=== PATIENT | male | born 1965 | race Caucasian/White ===

== ENCOUNTER 2022-01-11 11:07 | Outpatient (CLI) | payer OTHER, SELFPAY ==
--- OUTSIDE RECORDS SUMMARY | 2022-01-11 11:21 | XMS_ITS | Clinical Summary ---
:1965 Author Organization [employer] [facility] [facility] [place] [address] Care Team Providers Name Role Phone Jatinder Coffman MD Primary Care Provider Allergies Active Allergy Reactions Severity Noted Date Comments Clarithromycin Rash 06/20/2006 Cephalexin Rash 06/19/2006 Hydrocodone-Acetaminophen Nausea And Vomiting 04/16/19 20 Medications Medication Sig Dispensed Refills Start Date End Date Status methotrexate TAKE 6 TABLETS BY 3 01/13/2019 Active (RHEUMATREX) 2.5 mg MOUTH EVERY 7 DAYS tablet folic acid 1 mg Take 1 mg by mouth 3 11/28/2018 Active tablet once daily. terbinafine HCl TAKE 1 TABLET BY 5 01/17/2019 Active (LAMISIL) 250 mg MOUTH TWICE DAILY tablet FOR 1 WEEK PER MONTH FOR 6 MONTHS clobetasol cream APPLY CREAM 2 10/08/2018 Active 0.05% (TEMOVATE) TOPICALLY TO 0.05 % cream AFFECTED AREA TWICE DAILY SPARINGLY multivitamin (MVI) Take 1 tablet by 0 Active tablet mouth once daily. ibuprofen (ADVIL; Take 800 mg by mouth 0 Active MOTRIN) 200 mg cap once daily. oxyCODONE-acetaminop Take 1 tablet by 15 tablet 0 04/29/2019 Active hen, 5-325 mg, mouth every 6 hours (PERCOCET) 5-325 mg if needed for Pain per Max acetaminophen tabletIndications: dose: 4000mg in 24 Post-op pain hrs. Active Problems Problem Noted Date Umbilical hernia without obstruction and without gangr justin 11/23/2017 Other psoriasis 06/20/2006 Resolved Problems Problem Noted Date Resolved Date Impacted cerumen 06/19/2006 06/20/2006 Other acute infections of external ear 06/19/2006 0 06/20/2006 Immunizations Name Administration Dates Next Due Tdap 11/19/2015 Family History Medical History Relation Name Comments Hypertension Father Relation Name Status Comments Father Social History Tobacco Use Types Packs/Day Years Used Date Current Every Day Smoker Cigarettes 1 28 Smokeless Tobacco: Never Used Tobacco Cessation: Ready to Quit: No; Co unseling Given: Yes Alcohol Use Standard Drinks/Week Comments Yes 0 (1 standard drink = 0.6 oz pure alcoho l) Social Sex Assigned at Date Recorded Not on file Obstetrics History Last Filed Vital Signs Vital Sign Reading Time Taken Comments Blood Pressure 134/74 04/29/2019 10:24 AM RULING MACHINE OPERATOR Pulse 80 04/29/2019 10:24 AM RULING MACHINE OPERATOR Temperature 36.1 ??C (97 ??F) 04/16/2019 2:50 PM RULING MACHINE OPERATOR Respiratory Rate 16 04/16/2019 5:45 PM RULING MACHINE OPERATOR Oxygen Saturation 98% 04/16/2019 5:45 PM RULING MACHINE OPERATOR Inhaled Oxygen Concentration - - Weight 104 kg (229 lb 4.8 oz) 04/29/2019 10:24 AM RULING MACHINE OPERATOR Height 175.3 cm (5' 9) 04/16/2019 11:17 AM RULING MACHINE OPERATOR Body Mass Index 33.86 04/16/2019 11:17 AM RULING MACHINE OPERATOR Plan of Treatment Health Maintenance Due Date Last Done Comments COVID-19 vaccine series (#1) 03/30/1966 Hepatitis C screening for age 0709/28/1983 18-79 Colonoscopy through age 75 2010 Zoster (shingles) series for age 0709/28/2015 50+ (1 of 2) Depression screening for age 12+ 11/23/2018 11/23/2017, , 11/08/2017 BMI (ht and wt on same day) for 04/01/2020 04/01/2019, 11/19, age 18+ 11/23/2017, Additional history exists Influenza for age 50-64 11/18/2021 Lipids for age 45-75 11/08/2022 11/08/2017 Tetanus booster 11/18/2025 11/19/2015 Tdap Completed 11/19/2015 Medical Devices Implanted Type Area Hand Candy Cutter Device Shelf Model / Identifier Expiration Date Ser ial / Lot Mesh Ventral 3.1x4.7in Ventrio - [id number] N/A: Abdomen Mk ol Inc 05/17/2019 [id number] / Implanted: Qty: 1 on 04/16/2019 by Olivre Patel MD at [facility] / [id number] Results Not on filefrom Last 3 Months Insurance Payer Benefit Plan / Subscriber ID Effective Dates Phone Addre ss Type Group WC WORKERS COMP WC SENTRY [id number] 2017-Present [address] [place] [address] [employer] [id number] 2017-Present [address] [place] [address] (Home) [phone] Polina MYLES (Work) [id number] [employer] Self 1965 [address] (Home) [place] [id number] Advance Directives Latest Code Status on File Code Status Date Activated Date Inactivated Comments Full Code 04/16/2019 10:56 AM 04/16/2019 8:12 PM Code Status Discussion: Not Discussed Full Code 11/28/2017 8:27 AM 11/28/2017 3:43 PM Code Status Discussion: Not Discussed Care Teams Desizing Machine Back Tender Relationship Specialty Start Date End Date Jatinder Coffman MD PCP - General Family Practice 04/12/191999 [place] [address]
[2022-01-11 13:58] LABS: Basophils Percent Auto 0.5 % (0.0-3.0); Eosinophils Percent Auto 2.9 % (0.0-7.0); Hematocrit 47.6 % (37.0-53.0); Hemoglobin* 15.1 gm/dL (13.5-17.5); Immature Granulocytes Abs Auto 0.03 K/uL (0.00-0.30); Lymphocytes Percent Auto 24.2 % (20-44); Mean Corpuscular HGB Conc 32 gm/dL (32-36); Mean Corpuscular Hemoglobin 29 pg (26-34); Mean Corpuscular Volume 92 fL (80-100); Monocytes Percent Auto 11.4 % (0.0-11.0); Neutrophils Percent Auto 60.7 % (42.0-72.0); Platelet Count* 398 K/uL (140-440); RDW Coefficient of Variation % 13.5 % (11.5-15.5); Red Blood Count 5.16 m/uL (4.30-5.90); White Blood Count* 11.79 K/uL (4.50-11.00)
[2022-01-11 14:05] LABS: Slide Review Reflex No
[2022-01-11 16:57] LABS: Chloride* 100 mmol/L (96-114)
[2022-01-11 16:59] LABS: Potassium* 4.6 mmol/L (3.6-5.1); Sodium* 136 mmol/L (135-149)
[2022-01-11 17:00] LABS: Cholesterol* 182 mg/dL (90-199); Creatinine* 0.9 mg/dL (0.5-1.5); Estimated Glomerular Filt Rate 100 ml/min
[2022-01-11 17:01] LABS: Alanine Aminotransferase* 23 U/L (4-50); Blood Urea Nitrogen* 14 mg/dL (7-30); Calcium* 8.4 mg/dL (8.4-10.6); Carbon Dioxide* 31 mmol/L (20-32); Glucose* 82 mg/dL (60-115); HDL Cholesterol* 47 mg/dL (>=40); LDL Cholesterol Calculated 90 mg/dL (<100); Triglycerides* 227 mg/dL (40-149)
== END 2022-01-11 11:08 | disposition home or self-care (01) ==
PROVIDERS: PCP Family Medicine; Visit Provider Family Medicine
DX: E03.9 Hypothyroidism, unspecified (principal); Z13.6 Encounter for screening for cardiovascular disorders; Z12.5 Encounter for screening for malignant neoplasm of prostate
CPT/HCPCS: 80048; 80061; 84153; 84443; 84460; 85025

== ENCOUNTER 2022-02-01 19:17 | Outpatient (CLI) | payer OTHER, SELFPAY ==
--- OUTSIDE RECORDS SUMMARY | 2022-02-01 19:34 | XMS_ITS | Clinical Summary ---
:1965 Author Organization [employer] [facility] [employer] [facility] [place] [address] Care Team Providers Name Role Phone Jatinder Coffman MD Primary Care Provider [phone] Allergies Active Allergy Reactions Severity Noted Date [...] Comments Blood Pressure 134/74 04/29/2019 10:24 AM CONSULTING SERVICES MANAGER Pulse 80 04/29/2019 10:24 AM CONSULTING SERVICES MANAGER Temperature 36.1 ??C (97 ??F) 04/16/2019 2:50 PM CONSULTING SERVICES MANAGER Respiratory Rate 16 04/16/2019 5:45 PM CONSULTING SERVICES MANAGER Oxygen Saturation 98% 04/16/2019 5:45 PM CONSULTING SERVICES MANAGER Inhaled Oxygen Concentration - - Weight 104 kg (229 lb 4.8 oz) 04/29/2019 10:24 AM CONSULTING SERVICES MANAGER Height 175.3 cm (5' 9) 04/16/2019 11:17 AM CONSULTING SERVICES MANAGER Body Mass Index 33.86 04/16/2019 11:17 AM CONSULTING SERVICES MANAGER Plan of Treatment Health Maintenance Due Date [...] Completed 11/19/2015 Medical Devices Implanted Type Area Pipe Smoker Machine Operator Device Shelf Model / Identifier Expiration Date Ser ial / Lot Mesh Ventral 3.1x4.7in Ventrio - [id number] N/A: Abdomen Mk ol Inc 05/17/2019 [id number] / Implanted: Qty: 1 on 04/16/2019 by Oliver Patel MD at [facility] / [id number] Results Not on filefrom Last 3 Months Insurance Payer Benefit Plan / Subscriber ID Effective Dates Phone Addre ss Type Group WC WORKERS COMP WC SENTRY [id number] 2017-Present [address] [place] [address] [employer] [id number] 2017-Present [address] [place] [address] (Home) [phone] Polina MYLES (Work) [id number] [employer] Self [address] (Home) [place] [id number] Advance Directives Latest Code Status on File Code Status Date Activated Date Inactivated Comments Full Code 04/16/2019 10:56 AM 04/16/2019 8:12 PM Code Status Discussion: Not Discussed Full Code 11/28/2017 8:27 AM 11/28/2017 3:43 PM Code Status Discussion: Not Discussed Care Teams Mobile Pet Groomer Relationship Specialty Start Date End Date Jatinder Coffman MD PCP - General Family Practice 04/12/191999 [place] [address]
--- NOTE | 2022-02-08 12:25 | W.PM.SLEEP ---
Sleep Study Details Details Interpreting Provider: Dusty Cantu MD Date of Sleep Study: 02/01/22 Sleep Study Details: STUDY TYPE:? Home ? BMI:? 38.8 ORDERING PROVIDER:? Meghna INDICATION:? Concerns about sleep apnea ? SLEEP SUMMARY:? 342 minutes monitor RESPIRATORY SUMMARY:? AHI 78.2, supine 90.5, left lateral 67, right lateral 68.3 Low oxygen 69 95.5% of the study oxygen less than 90%, 49.9% of study oxygen less than 85%, 5.2% of study oxygen less than 80%. Snoring 20.1% PERIODIC LIMB MOVEMENTS OF SLEEP:? Not recorded CARDIAC:? 40-89, mean 63.1 IMPRESSION:? Severe obstructive sleep apnea with some supine position dependency and significant desaturation. RECOMMENDATION: Recommend an in-lab titration because of significant desaturations. Note however the central index was 0
== END 2022-02-01 19:18 | disposition home or self-care (01) ==
LOC: SLEEP 19:19
PROVIDERS: PCP Family Medicine; Visit Provider Family Medicine
DX: G47.33 Obstructive sleep apnea (adult) (pediatric) (principal)
CPT/HCPCS: 95806

== ENCOUNTER 2022-05-03 08:43 | Emergency (ER) | payer OTHER, SELFPAY ==
[2022-05-03 08:49] VITALS: BP 167/97; PULSE 72; RESP 16; TEMP 36.1; O2SAT 96; BMI 36.5
--- NOTE | 2022-05-03 09:04 | CRLHL7_ITS ---
For Patients: As a result of the Century Cures Act, medical imaging exams and procedure reports are released immediately into your electronic medical record. You may view this report before your referring provider. If you have questions, please contact your health care provider. Indication: Pain with flexion. Suspect meniscal tear.. Technique: Right knee, 3 views. Comparison: None. Findings: Bones: Alignment is normal. No fractures or bone lesions. Joint spaces: Moderate to large suprapatellar effusion. Soft tissues: Soft tissue swelling surrounding the knee.. Impression: Moderate to large suprapatellar effusion. No acute fractures or dislocations. Consider MRI of the knee for evaluation of suspected meniscal tear. Dictated by Magdi Ceja MD @ 05/03/2022 9:42:48 AM (Electronically Signed)
--- NOTE | 2022-05-03 09:05 | ED.LOWEXIN ---
HPI - Extremity Injury (Lower) General Date Seen: 05/03/22 Chief Complaint: Lower Extremity Swelling Stated Complaint: Popped Right knee Time Seen by Provider: 05/03/22 08:51 Source: patient and family Mode of arrival: ambulatory Limitations: no limitations History of Present Illness HPI Narrative: Patient is a delightful 56-year-old gentleman who presents here with a right injury while he was at work, he was going up a ladder and 1 on the 2nd rung felt out pop in his right knee, and pain in the right medial side posterior of his knee. This is very indicative of previous meniscal injury had on his left knee. He feels that whenever he flexes his knee, at the present time he is able to bear weight and walk on, but it is sore, he comes in with his after taking Tylenol ibuprofen for the discomfort. No numbness tingling he did not fall or injure himself otherwise. MD complaint: knee injury Onset (ago): minute(s) Injury: Right: knee Type of Injury: hyperflexion Place: work Severity: moderate Relieving factors: cold therapy and immobilization Exacerbating factors: movement Associated symptoms: snap/pop sensation Other symptoms: none Treatments prior to arrival: cold therapy and NSAIDS Related Data Home Medications Medication Instructions Recorded Confirmed folic acid 1 mg tablet 1 mg PO DAILY 01/10/22 05/03/22 tramadol 50 mg tablet 50 mg PO Q6-8H PRN 01/10/22 02/24/22 acetaminophen 500 mg tablet 1,000 mg PO Q6H PRN 01/11/22 05/03/22 (Tylenol Extra Strength) ibuprofen 200 mg tablet 400 mg PO Q8H 01/11/22 05/03/22 Previous Rx's Medication Instructions Recorded diclofenac sodium 75 mg 75 mg PO BID #60 tabs 01/11/22 tablet,delayed release methotrexate sodium 2.5 mg tablet 15 mg PO QWEEK #84 tabs 01/17/22 levothyroxine 75 mcg tablet 75 mcg PO DAILY #90 tabs 03/02/22 Allergies Allergy/AdvReac Type Severity Reaction Status Date / Time cephalexin Allergy Intermediate Hives Verified 05/03/22 08:48 clarithromycin Allergy Mild Unknown Verified 05/03/22 08:48 Sulfa (Sulfonamide Allergy Mild Hives Verified 05/03/22 08:48 Antibiotics) Review of Systems Status of ROS: Reports: 6 or more systems reviewed and unremarkable except as noted in History and below [facility] Surgical History History of umbilical hernia repair (11/28/17) Status post appendectomy (1993) Family History Paternal Grandfather Heart disease Social History Narrative: , 6 kids, 1 ppd smoker, no EtOH, works at [employer] Smoking Status: Current every day smoker What tobacco products do you use: cigarettes Smoking packs per day: 1 Smoking cigarettes per day: 20.0 Do you use any of these nicotine containing products: None Second hand tobacco smoke exposure: No How often do you have a drink containing alcohol: never AUDIT-C Alcohol total score: 0 Non-prescribed substance use: denies use Little interest or pleasure in doing things: several days Feeling down, depressed, or hopeless: not at all service: No Exam Narrative: Exam Narrative: Patient is examined in room 5, there is a slight effusion of his right knee notable. His range of motion is from 0? through 110?, popliteal fossa is little tender on the medial side, but I can feel no masses, grind test is positive, on his patella, with inducement of some pain, and Viji's test is also positive, with pain on the right side, I cannot get any locking with this however. His ACL PCL MCL and LCL are all intact, popliteal fossa has good pulses, DP and posterior tibial are normal, he has good muscle bulk, hips and ankle of good range of motion. Const: Vital Signs, click to edit/add: Vital Signs - 24 hr 05/03/22 08:49 Temperature 97.0 F L Pulse Rate [Pulse Oximeter] 72 Respiratory Rate 16 Blood Pressure [Ri ght Upper Arm] 167/97 H Pulse Oximetry 96 Oxygen Delivery Me thod Room Air Course Course Hospital Course: Reviewed with the patient the x-rays negative for fracture, radiological read pending, I discussed with him use of pain medications. 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 Work restrictions given to the patient, follow-up in 7-10 days with primary care suggested. Copy the note sent to Dr. Brown Vital Signs Vital signs: Initial Vital Signs Temperature 97.0 F L 05/03/22 08:49 Temperature Source Temporal Artery Scan 05/03/22 08:49 Pulse Rate 72 05/03/22 08:49 Pulse Rhythm 05/03/22 08:49 Pulse Strength 3+ Normal 05/03/22 08:49 Respiratory Rate 16 05/03/22 08:49 Blood Pressure 167/97 H 05/03/22 08:49 Blood Pressure Mean 120 05/03/22 08:49 Blood Pressure Position Supine 05/03/22 08:49 Pulse Oximetry 96 05/03/22 08:49 Oxygen Delivery Method 05/03/22 08:49 Vital Signs Temperature 97.0 F L 05/03/22 08:49 Pulse Rate 72 05/03/22 08:49 Respiratory Rate 16 05/03/22 08:49 Blood Pressure 167/97 H 05/03/22 08:49 Pulse Oximetry 96 05/03/22 08:49 Oxygen Delivery Method 05/03/22 08:49 Temperature 97.0 F L 05/03/22 08:49 Pulse Rate 72 05/03/22 08:49 Respiratory Rate 16 05/03/22 08:49 Blood Pressure 167/97 H 05/03/22 08:49 Pulse Oximetry 96 05/03/22 08:49 Oxygen Delivery Method 05/03/22 08:49 MDM - Extremity Injury (Lower) MDM Narrative Medical decision making narrative: I do agree with this gentleman the most likely cause hears a meniscal tear, he has other ligaments seem solid but I could not rule out other ligamentous disruption also. A Mathis cyst is a possibility although this is using more chronic, I do not think this is a knee dislocation, as his other tests are all negative concluding pulses. I think x-ray is important here to rule out a fracture, we will go forward with this. He likely will need knee immobilizer and also follow-up with primary care. For consideration of advanced imaging. Medical Records Attestation: I reviewed the patient's medical records. Imaging Data Right knee x-ray: Attestation: I have reviewed the pertinent imaging results. My impression: No evidence of acute fracture, abnormality Discharge Plan Discharge Clinical Impression: Acute pain of right knee Patient Disposition: Home w/ Parent or Adult Condition: Stable Instructions: Knee Pain (ED), Meniscus Tear (ED) Additional Instructions: I highly suspect that this is left-sided medial meniscal tear, given the history. Use the knee immobilizer for the next 7-10 days, light activity at work, you may walk on it, Tylenol/ibuprofen for the discomfort, small supply of stronger pain medications given. Follow-up with Dr. Brown in 7-10 days. At that point 2 May be able to convince workmen's Comp to do an MRI if ongoing symptoms. Activity Level: Light activity Activity Detail: No stepping, weight-bearing on the right leg okay, desk work only, Prescriptions: No Action folic acid 1 mg tablet 1 mg PO DAILY tramadol 50 mg tablet 50 mg PO Q6-8H PRN Rx Instructions: Used for chronic low back pain acetaminophen [Tylenol Extra Strength] 500 mg tablet 1,000 mg PO Q6H PRN ibuprofen 200 mg tablet 400 mg PO Q8H diclofenac sodium 75 mg tablet,delayed release (DR/EC) 75 mg PO BID Qty: 60 2RF methotrexate sodium 2.5 mg tablet 15 mg PO QWEEK Qty: 84 1RF levothyroxine 75 mcg tablet 75 mcg PO DAILY Qty: 90 3RF Follow Up/Referrals: Jatinder Brown MD [Primary Care Provider] - Stand Alone Forms: [employer] Info Instructions
--- NOTE | 2022-05-03 10:13 | ED.NURSE ---
faxed return to work forms to patients employer per form request.
== END 2022-05-03 10:13 | disposition home or self-care (01) ==
LOC: ED 09:44
PROVIDERS: Emergency Provider Family Medicine; PCP Family Medicine
DX: S83.91XA Sprain of unspecified site of right knee, initial encounter (principal); X50.1XXA Overexertion from prolonged static or awkward postures, initial encounter
CPT/HCPCS: 73562; 99283

== ENCOUNTER 2022-05-23 13:29 | Outpatient (CLI) | payer OTHER, SELFPAY ==
--- NOTE | 2022-05-23 13:45 | CRLHL7_ITS ---
For Patients: As a result of the Century Cures Act, medical imaging exams and procedure reports are released immediately into your electronic medical record. You may view this report before your referring provider. If you have questions, please contact your health care provider. INDICATION: Pain after injury. COMPARISON: Plain film 03 May 2022. TECHNIQUE: Axial T1 and PD fat-sat, sagittal PD and T2 fat-sat and coronal PD and PD fat-sat right knee sequences. FINDINGS: Medial compartment: Meniscus: Irregular intermediate to high-grade degenerative tearing at the medial meniscal root. Minor extrusion of the meniscus. Articular cartilage: Undulating intermediate to high grade 2 thinning in the medial condyle. No secondary degenerative finding. MCL: Intact. - Cruciate ligaments: ACL: Intact. PCL: Intact. - Lateral compartment: Meniscus: Intact. Articular cartilage: Uniform shallow grade 2 thinning. Lateral collateral complex: Intact. - Patellofemoral compartment: Small focus of subchondral edema at the upper median ridge with overlying heterogeneous signal in the cartilage but no full-thickness defect or fissure appreciated. Cartilage looks uniform through the patella. Grade 2 irregular thinning in the inferior trochlea prickly medially whether some irregular grade 3 to grade 4 fissuring with underlying subchondral cysts and edema. - Extensor mechanism: Distal quadriceps tendon and patellar tendon are intact with anatomic patellar alignment. - Bones and soft tissues: Physiologic fluid in the joint. No fracture or bone lesion. Focal area of fatty replacement in the central medial head of the gastrocnemius may be posttraumatic chronic etiology versus incompletely visualized intramuscular lipoma. IMPRESSION: 1. High-grade degenerative partial tearing medial meniscal root. 2. 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 3. Posttraumatic focal fatty atrophy versus intramuscular lipoma incompletely visualized medial head of the gastrocnemius. Correlate with prior history. It may be worthwhile obtaining MRI of the calf to better characterize. Dictated by Victor Hugo Mcgraw MD @ 05/24/2022 1:17:38 PM (Electronically Signed)
== END 2022-05-23 13:30 | disposition home or self-care (01) ==
PROVIDERS: PCP Family Medicine; Visit Provider Family Medicine
DX: M25.561 Pain in right knee (principal); S83.241A Other tear of medial meniscus, current injury, right knee, initial encounter; M94.261 Chondromalacia, right knee
CPT/HCPCS: 73721

== ENCOUNTER 2022-06-23 11:08 | Outpatient (CLI) | payer OTHER, SELFPAY ==
[2022-06-23 13:41] LABS: Basophils Percent Auto 0.7 % (0.0-3.0); Eosinophils Percent Auto 2.6 % (0.0-7.0); Hematocrit 48.1 % (37.0-53.0); Hemoglobin* 15.6 gm/dL (13.5-17.5); Immature Granulocytes Pct Auto 0.2 %; Lymphocytes Percent Auto 24.6 % (20-44); Mean Corpuscular HGB Conc 32 gm/dL (32-36); Mean Corpuscular Hemoglobin 30 pg (26-34); Mean Corpuscular Volume 91 fL (80-100); Monocytes Percent Auto 9.6 % (0.0-11.0); Neutrophils Percent Auto 62.3 % (42.0-72.0); Platelet Count* 457 K/uL (140-440); RDW Coefficient of Variation % 13.6 % (11.5-15.5); Red Blood Count 5.29 m/uL (4.30-5.90); White Blood Count* 11.33 K/uL (4.50-11.00)
[2022-06-23 13:47] LABS: Slide Review Reflex No
[2022-06-23 14:16] LABS: Chloride* 105 mmol/L (96-114)
[2022-06-23 14:17] LABS: Potassium* 4.9 mmol/L (3.6-5.1); Sodium* 139 mmol/L (135-149)
[2022-06-23 14:19] LABS: Creatinine* 0.7 mg/dL (0.5-1.5); Estimated Glomerular Filt Rate 108 ml/min
[2022-06-23 14:20] LABS: Alanine Aminotransferase* 27 U/L (4-50); Blood Urea Nitrogen* 15 mg/dL (7-30); Calcium* 9.4 mg/dL (8.4-10.6); Carbon Dioxide* 30 mmol/L (20-32); Glucose* 96 mg/dL (60-115)
== END 2022-06-23 11:09 | disposition home or self-care (01) ==
PROVIDERS: PCP Family Medicine; Visit Provider Family Medicine
DX: Z01.818 Encounter for other preprocedural examination (principal); E03.9 Hypothyroidism, unspecified; I10 Essential (primary) hypertension
CPT/HCPCS: 80048; 84443; 84460; 85025

== ENCOUNTER 2022-06-28 06:04 | Day surgery (SDC) | payer OTHER, SELFPAY ==
[2022-06-28] VITALS (11 sets, daily range): BP systolic 97–144; BP diastolic 53–92; PULSE 59–77; RESP 16–20; TEMP 36.1–37.1; O2SAT 91–97; BMI 37.4
[2022-06-28] MEDS: LACTATED RINGERS 1000 ML 1,000 ML 100 ML IV (06:20)
[2022-06-28] MEDS: SODIUM CHLORIDE 0.9 % (FLUSH) 10 ML SYRINGE IVF ×2 (06:20→10:47)
--- NOTE | 2022-06-28 06:29 | SUR.PREOP ---
Patient provided home covid negative results to RN.
[2022-06-28] MEDS: CLINDAMYCIN 900 MG/50 ML-D5W IVPB (07:18)
--- NOTE | 2022-06-28 07:47 | W.ANESCHARGE ---
Anesthesia Charges Start Date/Time Anesthesia Start Date: 06/28/22 Anesthesia Start Time: 07:12 Stop Date/Time Anesthesia Stop Date: 06/28/22 Anesthesia Stop Time: 08:30
--- NOTE | 2022-06-28 08:20 | PM.ORPRC ---
Procedure Note Date of procedure: 06/28/22 Procedure: PREOPERATIVE DIAGNOSIS: Right knee medial meniscus root tear POSTOPERATIVE DIAGNOSIS: Right knee medial meniscus root tear NAME OF OPERATION: Right knee arthroscopic medial meniscus root repair SURGEON: Jonathan Willoughby MD AGRICULTURAL RESEARCH TECHNICIAN: DEJAN Tai ANESTHESIA: Spinal ESTIMATED BLOOD LOSS: 0 mL COMPLICATIONS: None SPECIMENS: None DRAINS: None PREOPERATIVE ANTIBIOTICS: Ancef 2 gram INDICATIONS: The patient is a 56-year-old with a history of right knee medial pain. MRI scan is consistent with a medial meniscus root tear. Despite appropriate nonoperative management, including activity modification, antiinflammatories, ejya-vhl-ibyueji pain medication, bracing, physical therapy, and injections they continue to have pain and disability. Operative intervention was offered. The risks, benefits and expected outcomes were discussed in detail. These included but were not limited to: Infection, bleeding, injury to blood vessel or nerve, venous thromboembolism. All questions were answered to their satisfaction. PROCEDURE: Spinal anesthesia was administered. The patient was placed supine on the operating room table. The right lower extremity was prepped and draped in the usual sterile fashion. The limb was exsanguinated with the Curry bandage. The pneumatic tourniquet was inflated to 300 mmHg. A standard anterolateral portal was established. The arthroscope was introduced. The working portal was established anteromedially. Diagnostic arthroscopy was performed with findings as follows: The suprapatellar pouch is normal. Articular surface on the patella is normal. Articular surface on the trochlea is normal. The medial gutter is normal. The medial compartment shows diffuse grade 3 change on the medial femoral condyle, grade 2 change on the medial tibial plateau. The medial meniscus has a radial tear from the leading edge to the capsule, just off the posterior tibial attachment, completely detaching it from the tibia. The notch shows the ACL to be intact. The lateral compartment shows normal articular cartilage on the lateral femoral condyle and lateral tibial plateau. The lateral meniscus is normal. The lateral gutter is normal. Unstable chondral flaps on the medial femoral condyle were debrided with the shaver, taken to a stable base. It was difficult to fully visualize the posterior horn. Therefore, we pie crusted the MCL with a spinal needle. This improved our visualization. The knee scorpion was used to pass a fiber link x 2 in the posterior horn of the medial meniscus. The tibial drill guide was used over the footprint of the root. A longitudinal incision over the anteromedial face of the tibia was placed. The flip cutter was drilled into the footprint. The flip cutter was flipped and back cut 5 mm. It was removed and exchanged for a fiber stick. The fiber stick was brought out the anteromedial portal and was used to shuttle both of the fiber link luggage tag sutures on the posterior horn out the anteromedial tibia. We then tensioned the sutures and fixed them to the tibia with a SwiveLock anchor. This provided an excellent repair of the posterior tibial attachment of the medial meniscus to its anatomic footprint. The power pick was used to microfracture the notch both medially and laterally. Arthroscopic instruments were removed, the portal sites were Steri-Stripped closed, the incision over the tibia was closed with 3-0 Vicryl and 4-0 Monocryl, the knee was infiltrated with 30 mL of 0.25% Marcaine without epinephrine. A dry dressing was applied, the tourniquet was released. Sponge and needle counts were correct x 2. The patient tolerated the procedure well. There were no apparent complications. They were carefully transferred to the hospital bed and taken to the postanesthesia care unit in satisfactory condition. PLAN: The patient will be discharged to home. They will be strict nonweightbearing on the lower extremity for 6 weeks postoperatively. Range of motion will be allowed from 0-90 degrees x 2 weeks then unrestricted range of motion. They will follow up in 2 weeks for a wound check.
--- NOTE | 2022-06-28 08:41 | W.ANESCHARGE ---
Anesthesia Charges Start Date/Time Anesthesia Start Date: 06/28/22 Anesthesia Start Time: 07:12 Stop Date/Time Anesthesia Stop Date: 06/28/22 Anesthesia Stop Time: 08:30
--- NOTE | 2022-06-28 08:53 | W.PM.NB ---
Nerve Block Nerve Block Time Seen by Provider: 08:25 Date Seen: 06/28/22 Type of block requested by surgeon for post-operative analgesia: geniculars Side: right Time out performed: Yes Verification of patient name: Yes Verification of date of : Yes Site marking: site marked Name of person performing procedure: Adiel Continuous monitoring Was continuous monitoring of O2 sat, B/P, telemetry monitor, recorded every 15 minutes?: Yes Procedure Checklist: sterile prep, needles and gloves Medications given in 5ml increments after negative aspiration: Ropivicaine %: 0.5 mL: 9 Needle gauge: 25 Decadron (mg): 5 Precedex (mcg): 25 Patient tolerated procedure well: Yes Block Charges Block Charge (with Pro Fee): Genicular Nerve Block Use of Ultrasound Machine for Block: No
[2022-06-28] MEDS: OxyCODONE/APAP 5-325 TABLET PO (09:08)
[2022-06-28] MEDS: ONDANSETRON 2 MG/ML inj 4 MG IVP (10:24)
[2022-06-28] MEDS: METOCLOPRAMIDE HCL 5 MG/ML INJ 10 MG IVP (10:46)
== END 2022-06-28 11:05 | disposition home or self-care (01) ==
PROVIDERS: PCP Family Medicine; Visit Provider Orthopaedic Surgery
PROC: (CPT 29882; principal; 2022-06-28 07:15)
DX: M23.221 Derangement of posterior horn of medial meniscus due to old tear or injury, right knee (principal)
CPT/HCPCS: 29882; 01400; A9270; C1713; J1100; J2250; J2370; J2405; J2704; J2765; J3010; J7120; S0077

== ENCOUNTER 2023-06-01 12:10 | Outpatient (CLI) | payer OTHER, SELFPAY | END 2023-06-01 12:11 | disposition home or self-care (01) | PROVIDERS: PCP Family Medicine; Visit Provider Family Medicine | DX: I10 Essential (primary) hypertension (principal); E03.9 Hypothyroidism, unspecified; Z13.0 Encounter for screening for diseases of the blood and blood-forming organs and certain disorders involving the immune mechanism; Z12.5 Encounter for screening for malignant neoplasm of prostate | CPT/HCPCS: 80048; 84443; 84460; 85025; G0103 ==

== ENCOUNTER 2024-03-21 09:58 | Outpatient (CLI) | payer OTHER, SELFPAY | END 2024-03-21 09:59 | disposition home or self-care (01) | PROVIDERS: PCP Family Medicine; Visit Provider Family Medicine | DX: I10 Essential (primary) hypertension (principal); L40.9 Psoriasis, unspecified; E03.9 Hypothyroidism, unspecified; Z13.6 Encounter for screening for cardiovascular disorders | CPT/HCPCS: 80048; 80061; 84460; 85025 ==

== ENCOUNTER 2024-09-25 08:40 | Outpatient (CLI) | payer OTHER, SELFPAY | END 2024-09-25 08:41 | disposition home or self-care (01) | PROVIDERS: PCP Family Medicine; Visit Provider Family Medicine | DX: E03.9 Hypothyroidism, unspecified (principal); I10 Essential (primary) hypertension; R53.83 Other fatigue; Z12.5 Encounter for screening for malignant neoplasm of prostate | CPT/HCPCS: 80048; 84443; 84460; 85027; G0103 ==

== ENCOUNTER 2024-10-11 13:33 | Outpatient (CLI) | payer OTHER, SELFPAY ==
--- NOTE | 2024-10-11 14:00 | CRLHL7_ITS ---
For Patients: As a result of the Century Cures Act, medical imaging exams and procedure reports are released immediately into your electronic medical record. You may view this report before your referring provider. If you have questions, please contact your health care provider. INDICATION: Left neck lump. TECHNIQUE: CT of the neck with 121 cc Isovue 370 iodinated intravenous contrast agent. COMPARISON: None. FINDINGS: Nasopharynx: Within normal limits. Oropharynx: Within normal limits. Oral cavity: Within normal limits. Supraglottic, glottic and infraglottic larynx: Within normal limits. Hypopharynx: Within normal limits. Airway including the trachea: Within normal limits. Salivary glands and thyroid gland: Small radiodense sialolith within the left caudal parotid gland. The salivary glands are otherwise normal in appearance. There is thyromegaly. Ectopic thyroid tissue anterior to the thyroid gland and strap musculature. Lymph nodes and other cervical soft tissues: Within normal limits. Vascular Structures: Within normal limits. Osseous structures: Within normal limits. Paranasal sinuses and mastoid air cells: Scattered opacification of ethmoid air cells. A right maxillary sinus retention cyst. Teeth: Within normal limits. Imaged orbits and intracranial contents: Within normal limits. Imaged chest wall, mediastinum and upper lungs: Within normal limits. IMPRESSION: 1. No suspicious enhancement or neck mass within the left neck or elsewhere within the cervical soft tissues. 2. 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 3. Radiodense sialolith left caudal parotid gland. Please note that all CT scans at this facility use dose modulation, iterative reconstruction, and/or weight-based dosing when appropriate to reduce radiation dose to as low as reasonably achievable. Dictated by José Miguel Fischer MD @ 10/14/2024 11:15:41 AM (Electronically Signed)
== END 2024-10-11 13:34 | disposition home or self-care (01) ==
LOC: CT 13:34
PROVIDERS: PCP Family Medicine; Visit Provider Family Medicine
DX: R22.1 Localized swelling, mass and lump, neck (principal); E01.0 Iodine-deficiency related diffuse (endemic) goiter
CPT/HCPCS: 70491; Q9967

== ENCOUNTER 2024-11-19 10:17 | Emergency (ER) | payer OTHER, SELFPAY ==
[2024-11-19] VITALS (7 sets, daily range): BP systolic 100–110; BP diastolic 56–73; PULSE 67–86; RESP 18; TEMP 35.9; O2SAT 93–99; BMI 33.1
--- OUTSIDE RECORDS SUMMARY | 2024-11-19 10:19 | XMS_ITS | Clinical Summary ---
Author Organization [employer] [facility] Address [address] [place] [id number] Care Team Providers Care Director Banking Name Role Phone Jatinder Coffman MD Primary Care Provider + Allergies Active Allergy Reactions Criticality Noted Date Comments Clarithromycin Rash 06/20/2006 Cephalexin Rash 06/19/2006 Hydrocodone-Acetaminophen Nausea And Vomiting 0 04/16/2019 Medications methotrexate (RHEUMATREX) 2.5 mg tablet TAKE 6 TABLETS BY MOUTH EVERY 7 DAYS 3 9 Active folic acid 1 mg tablet Take 1 mg by mouth once daily. 3 9 Active terbinafine HCl (LAMISIL) 250 mg tablet TAKE 1 TABLET BY MOUTH TWICE DAILY FOR 1 WEEK PER MONTH FOR 6 MONTHS 5 9 Active clobetasol cream 0.05% (TEMOVATE) 0.05 % cream APPLY CREAM TOPICALLY TO AFFECTED AREA TWICE DAILY SPARINGLY 2 9 Active multivitamin (MVI) tablet Take 1 tablet by mouth once daily. Active ibuprofen (ADVIL; MOTRIN) 200 mg cap Take 800 mg by mouth once daily. Active oxyCODONE-acet aminophen, 5-325 mg, (PERCOCET) 5-325 mg per tabletIndicati ons:Post-op pain Take 1 tablet by mouth every 6 hours if needed for Pain Max acetaminophen dose: 4000mg in 24 hrs. 15 tablet 0 Active Active Problems Problem Noted Date Diagnosed Date Umbilical hernia without obstruction and without gangrene 11/23/2017 Other psoriasis 06/20/2006 Resolved Problems Problem Noted Date Diagnosed Date Resolved Date Impacted cerumen 06/19/2006 06/20/2006 Other acute infections of external ear 06/19/2006 06/20/2006 Immunizations Immunization Administration Dates Next Due Tdap 11/19/2015 Family History Medical History Relation Name Comments Hypertension Father Relation Name Status Comments Father Social History Tobacco Use Types Packs/Day Years Used Date Smoking Tobacco: Every Day Cigarettes 1 28 Smokeless Tobacco: Never Tobacco Cessation:Ready to Q uit: No; Counseling Given: Yes Alcohol Use Standard Drinks/Week Comments Yes 0 (1 standard drink = 0.6 oz pur e alcohol) Social PHQ-2 Answer Date Recorded PHQ-2 Score 0 05/21/2018 Social Connections Answer Date Recorded Frequency of Communication with Friends and Fami ly Not on file 03/20/2021 Financial Resource Strain Answer Date R ecorded Difficulty of Paying Living Expenses Not on file 03/20/2021 Difficulty of Paying Living Expenses Not on file 03/20/2021 Interpersonal Safety Answer Date Record ed Are you being hit, kicked, p ushed or yelled at (see row info)? 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 Not on file Not on file Not on file Obstetrics History Last Filed Vital Signs Vital Sign Reading Time Taken Comments Blood Pressure 160/90 06/26/2023 1:30 PM CDT Pulse 76 06/26/2023 1:30 PM CDT Temperature 36.8 C (98.2 F) 06/26/2023 1:30 PM CDT Respiratory Rate 20 06/26/2023 1:30 PM CDT Oxygen Saturation 97% 06/26/2023 1:30 PM CDT Inhaled Oxygen Concentration - - Weight 113.9 kg (251 lb) 06/26/2023 1:30 PM CDT Height 172.7 cm (5' 8) 06/26/2023 1:30 PM CDT Body Mass Index 38.16 06/26/2023 1:30 PM CDT Plan of Treatment Health Maintenance Due Date Last Done Comments COVID-19 vaccine series (#1) 1970 HIV for age 15-65 1980 Hepatitis C screening for ag e 18-79 09/28/1983 Hepatitis B series for 19+ ( 1 of 3 - 19+ 3-dose series) 1984 Pneumococcal series for age 50+ (1 of 2 - PCV) 1984 Zoster (shingles) series for age 50+ (1 of 2) 1984 Colonoscopy through age 75 2010 Depression screening for age 12+ 11/23/2018 11/23/2017, 11/14/2017, 11/08/2017 BMI (ht and wt on same day) for age 18+ 04/01/2020 04/01/2019, 12/12/2017, 11/23/2017, Additional history exists Lipids for age 45-75 11/08/2022 11/08/2017 Influenza Vaccine (#1) 2024 Tetanus booster 11/18/2025 11/19/2015 RSV vaccine for adults or (1 - 1-dose 75+ series) 2040 Medical Devices Implanted Type Area Chair Car Driver Device Identifier Shelf Expiration Date Model / Serial / Lot Mesh Ventral 3.1x4.7in Ventrio - [id number] Implanted:Qty: 1 on 04/16/2019 by Oliver Patel MD at [facility] N/A: Abdomen [employer] 05/17/2019 [id number] / / [id number] Procedures Procedure Name Priority Date/Time Associated Diagnosis Comments LIPID PANEL W REFLEX MEASURED LDL Routine 11/08/2017 10:40 AM CDT Screening for diabetes mellitus from Last 3 Months or Most Recently Relevant to Health Maintenance Results * (ABNORMAL) LIPID PANEL W REFLEX MEASURED LDL (11/08/2017 10:40 AM CDT) CHOLESTEROL,TOTAL 188 100 - 199 mg/dL 11/08/2017 11:22 AM CDT [facility] TRIGLYCERIDES 378(H) <150 mg/dL 11/08/2017 11:22 AM CDT [facility] HDL CHOLESTEROL 32(L) >40 mg/dL 8 11:22 AM CDT [facility] NON-HDL CHOLESTEROL 156(H) <145 mg/dl 11/08/2017 11:22 AM CDT [facility] CHOL/HDL RATIO 5.88(H) <4.50 11/08/2017 11:22 AM CDT [facility] LDL CHOLESTEROL 80 <=130 mg/dL 11/08/2017 11:22 AM CDT [facility] PROVIDER ORDERED STATUS RANDOM 11/08/2017 11:22 AM CDT [facility] Blood BLOOD SPECIMEN / Unknown Venipuncture / Unknown 11/08/2017 10:40 AM CDT 11/08/2017 10:40 AM CDT us Jatinder Coffman MD CHEMISTRY Final Re sult [facility] [address] [place] [address] from Last 3 Months or Most Recently Relevant to Health Maintenance Insurance [employer] [place] [id number] Advance Directives * Full Code (Latest Code Status on File) Date Activated Date Inactivated Comments 04/16/2019 10:56 AM 04/16/2019 8:12 PM Question Answer Comments Code Status Discussion: Not Discussed * Full Code Date Activated Date Inactivated Comments 11/28/2017 8:27 AM 11/28/2017 3:43 PM Question Answer Comments Code Status Discussion: Not Discussed Care Teams Director Banking Relationship Specialty Start Date End Date Jatinder Coffman MD [address] [place] [address] PCP - General Family Practice 04/12/19
--- NOTE | 2024-11-19 11:04 | CRLHL7_ITS ---
For Patients: As a result of the Cures Act, medical imaging exams and procedure reports are released immediately into your electronic medical record. You may view this report before your referring provider. If you have questions, please contact your health care provider. INDICATION: Left inguinal hernia. TECHNIQUE: CT pelvis without contrast. COMPARISON: None. FINDINGS: Moderate left inguinal hernia contains fat, urinary bladder and small volume ascites. There is heterogeneous stranding of fat within the hernia. Bladder as imaged is otherwise unremarkable. Mild prostatomegaly. Sigmoid diverticulosis without evidence of acute diverticulitis. No pathologic pelvic lymphadenopathy. Atherosclerotic disease. No aneurysm of the distal abdominal aorta. Mild degenerative changes of the visualized spine and pelvis. No acute or suspicious osseous abnormality. IMPRESSION: Moderate left inguinal hernia containing urinary bladder, small volume ascites and internal fat stranding. Surgical consultation regarding further management recommended. Dictated by Danish Mireles MD @ 11/19/2024 12:28:21 PM Please note that all CT scans at this facility use dose modulation, iterative reconstruction, and/or weight-based dosing when appropriate to reduce radiation dose to as low as reasonably achievable. Dictated by: Danish Mireles MD @ 11/19/2024 12:28:35 (Electronically Signed)
--- NOTE | 2024-11-19 11:24 | ED.GENADULT ---
HPI - General Adult General Chief complaint: Abdominal Pain Stated complaint: sent by PCP- look at a Hernia Time Seen by Provider: 11/19/24 10:36 Source: patient Mode of arrival: ambulatory Limitations: no limitations History of Present Illness HPI narrative: [age] year male presenting today with left lower quadrant pain. Patient states that he has an inguinal hernia present for about a year but in the last 2 days the area has become tender, the bulge has become bigger and he is unable to push it back in. He denies fevers, chills, nausea or vomiting. No changes in his appetite. No difficulty with bowel movements. Urinating normally he does feel increased pressure when he urinates. Pain does not radiate up into the abdomen or down the leg. Related Data Home Medications ?Medication ?Instructions ?Recorded ?Confirmed CPAP inhalation 06/23/22 03/21/24 Previous Rx's ?Medication ?Instructions ?Recorded folic acid 1 mg tablet 1 mg PO DAILY #90 tabs 03/21/24 gabapentin 300 mg capsule 300 mg PO TID PRN pain #90 caps 07/25/24 Held on 11/19/24. Instructions: not needed at this time lisinopril 10 1 tab PO QDAY #90 tabs 09/25/24 mg-hydrochlorothiazide 12.5 mg tablet levothyroxine 88 mcg tablet 88 mcg PO DAILY #90 tabs 09/26/24 tirzepatide (weight loss) 5 mg/0.5 5 mg (0.5 mL) subcut QWEEK #2 mL 10/29/24 mL subcutaneous pen injector methotrexate sodium 2.5 mg tablet 15 mg (6 x 2.5 mg) PO QWEEK #84 11/04/24 tabs Allergies Allergy/AdvReac Type Severity Reaction Status Date / Time cephalexin Allergy Intermediate Hives Verified 11/19/24 10:30 clarithromycin Allergy Mild Unknown Verified 11/19/24 10:30 Sulfa (Sulfonamide Allergy Mild Hives Verified 11/19/24 10:30 Antibiotics) Review of Systems Status of ROS: Reports: 10 or more systems reviewed and unremarkable except as noted in History and below [facility] Medical History Primary hypertension ?I10 - Essential (primary) hypertension (ICD-10) OAB (overactive bladder) ?N32.81 - Overactive bladder (ICD-10) BPH (benign prostatic hyperplasia) ?N40.0 - Benign prostatic hyperplasia without lower urinary tract symptoms (ICD-10) Psoriasis ?L40.9 - Psoriasis, unspecified (ICD-10) Obstructive sleep apnea syndrome ?G47.33 - Obstructive sleep apnea (adult) (pediatric) (ICD-10) Hypothyroidism ?E03.9 - Hypothyroidism, unspecified (ICD-10) Chronic low back pain ?M54.50 - Low back pain, unspecified (ICD-10) ?G89.29 - Other chronic pain (ICD-10) Bilateral carpal tunnel syndrome ?G56.03 - Carpal tunnel syndrome, bilateral upper limbs (ICD-10) Surgical History S/P right knee arthroscopy (06/28/22) ?Z98.890 - Other specified postprocedural states (ICD-10) S/P left knee arthroscopy (06/04/20) ?Z98.890 - Other specified postprocedural states (ICD-10) Status post appendectomy (1993) ?Z90.49 - Acquired absence of other specified parts of digestive tract (ICD-10) History of umbilical hernia repair (11/28/17) ?Z98.890 - Other specified postprocedural states (ICD-10) ?Z87.19 - Personal history of other diseases of the digestive system (ICD-10) Family History Paternal Grandfather Heart disease Social History Narrative: , 6 kids, 1 ppd smoker, no EtOH, works at [employer] What is your current living situation?: I presently have a place to live Problems where you live: no known problems In the past 12 months, utilities in danger of being shut off: no In past 12 months, lack of transportation kept you from medical appts, meetings, work, or getting things needed for daily living: no In the past 12 mos, have been you worried that your food would run out before you had money to buy more?: never true In the past 12 mos, the food you bought just didn't last and you didn't have money to buy more?: never true Smoking Status: Current every day smoker What tobacco products do you use: cigarettes Smoking packs per day: 1 Smoking cigarettes per day: 20.0 Do you use any of these nicotine containing products: None Second hand tobacco smoke exposure: No How often do you have a drink containing alcohol: never AUDIT-C Alcohol total score: 0 Non-prescribed substance use: denies use Caffeine: Yes How often does anyone, including family, friends and others, physically hurt you: never How often does anyone, including family, friends and others, insult or talk down to you: never How often does anyone, including family, friends and others, scream or curse at you: rarely service: No Health Related Social Needs: Other personal risk factors, not elsewhere classified (Z91.89) Exam Narrative: Exam Narrative: Overweight, well-developed patient in no acute distress. Alert and oriented. Answers questions appropriately. Mood and affect are appropriate. Thoughts are goal oriented and rational. No tangential or magical thinking noted. Patient speaks in full sentences without needing to catch his breath. HEENT: Normocephalic atraumatic. Pupils are equally round reactive to light. Extraocular muscles are intact. Conjunctivae are moist without any icterus noted. Moist mucous membranes. Cardiovascular: Heart is regular rate and rhythm S1 and S2 are present without any murmurs. Lungs: Clear to auscultation bilaterally no wheezes rhonchi or rales are appreciated. Abdomen: Soft and nondistended with normal bowel sounds. No guarding or rebound. Patient has a left inguinal hernia present that is not easily reduced. Slightly tender. Extremities: Bilateral lower extremities are without edema. Skin: Well perfused without any obvious rashes. Const: Vital Signs, click to edit/add: Vital Signs - 24 hr 11/19/24 10:25 Temperature 96.7 F L Pulse Rate [Pulse Oximeter] 86 Respiratory Rate 18 Blood Pressure [Ri ght Upper Arm] 106/73 Pulse Oximetry 99 Oxygen Delivery Me thod Room Air Course Course ED Course: Symptoms concerning for incarcerated hernia. CBC shows a white cell count of 14.38, 76% neutrophils. Platelet count elevated but this is not new for the patient, he does have history of thrombocytosis. Chemistries are unremarkable. Normal lactate. CRP 1.3. Pelvic CT shows inguinal hernia containing mostly fat and some bladder. Discussed case with Dr. Hong who recommends reducing the hernia manually. Therefore patient was given 50 mcg of fentanyl and 2 mg of Versed and placed in Trendelenburg. Hernia was easily reduced without difficulty. Vital Signs Vital signs: Initial Vital Signs Temperature 96.7 F L 11/19/24 10:25 Temperature Source Temporal Artery Scan 11/19/24 10:25 Pulse Rate 86 11/19/24 10:25 Respiratory Rate 18 11/19/24 10:25 Blood Pressure 106/73 11/19/24 10:25 Blood Pressure Mean 84 11/19/24 10:25 Blood Pressure Position Sitting 11/19/24 10:25 Pulse Oximetry 99 11/19/24 10:25 Oxygen Delivery Method Room Air 11/19/24 10:25 Vital Signs Temperature 96.7 F L 11/19/24 10:25 Pulse Rate 86 11/19/24 10:25 Respiratory Rate 18 11/19/24 10:25 Blood Pressure 106/73 11/19/24 10:25 Pulse Oximetry 99 11/19/24 10:25 Oxygen Delivery Method Room Air 11/19/24 10:25 Temperature 96.7 F L 11/19/24 10:25 Pulse Rate 86 11/19/24 10:25 Respiratory Rate 18 11/19/24 10:25 Blood Pressure 106/73 11/19/24 10:25 Pulse Oximetry 99 11/19/24 10:25 Oxygen Delivery Method Room Air 11/19/24 10:25 Medications Administered Medications: Discontinued Medications Generic Name Dose Route Start Last Admin Trade Name Freq PRN Reason Stop Dose Admin Fentanyl 50 mcg 11/19/24 12:48 11/19/24 13:02 Fentanyl 100 Mcg/2 Ml Inj IVP 11/19/24 12:49 50 mcg ONCE ONE Administration Midazolam HCl 2 mg 11/19/24 12:48 11/19/24 13:01 Midazolam Hcl 1 Mg/Ml Inj IVP 11/19/24 12:49 2 mg ONCE ONE Administration Medical Decision Making MDM Narrative Medical decision making narrative: 59-year-old male with left inguinal hernia containing fat and bladder. Reduced in the ED today. Patient will follow-up with general surgery outpatient. Lab Data Lab results reviewed: Yes I reviewed the patient's lab results Labs: Lab Results 11/19/24 Range/Units 11:20 WBC 14.38 H (4.50-11.00) K/uL RBC 4.94 (4.30-5.90) m/uL Hgb 14.6 (13.5-17.5) gm/dL Hct 43.7 (37.0-53.0) % MCV 89 (80-100) fL MCH 30 (26-34) pg MCHC 33 (32-36) gm/dL RDW Coeff of Paulino 13.7 (11.5-15.5) % Plt Count 453 H (140-440) K/uL Neut % (Auto) 76.2 H (42.0-72.0) % Lymph % (Auto) 14.3 L (20-44) % Tillman % (Auto) 7.4 (0.0-11.0) % Eos % (Auto) 1.3 (0.0-7.0) % Baso % (Auto) 0.6 (0.0-3.0) % Neut # (Auto) 11.00 H (1.7-7.0) K/uL Lymph # (Auto) 2.10 (0.90-2.90) K/uL Tillman # (Auto) 1.10 H (0.00-0.90) K/UL Eos # (Auto) 0.20 (0.00-0.50) K/uL Baso # (Auto) 0.10 (0.00-0.30) K/uL Abs Immat Gran (auto) 0.00 (0.00-0.30) K/uL Imm/Tot Granulo (auto) 0.2 % Sodium 136 (135-149) mmol/L Potassium 4.0 (3.6-5.1) mmol/L Chloride 101 (96-114) mmol/L Carbon Dioxide 28 (20-32) mmol/L Anion Gap 7 (7-15) mEq/L BUN 14 (7-30) mg/dL Creatinine 1.0 (0.5-1.5) mg/dL Estimated Creat Clear 76.95 Estimated GFR 87 ml/min Glucose 95 (60-115) mg/dL Lactate 1.1 (0.5-1.9) mmol/L Calcium 9.6 (8.4-10.6) mg/dL Total Bilirubin 0.5 (0.1-1.5) mg/dL Direct Bilirubin 0.2 (0.0-0.5) mg/dL AST 23 (12-35) U/L ALT 17 (4-50) U/L Alkaline Phosphatase 62 (40-150) U/L C-Reactive Protein 1.3 H (0.5-1.0) mg/dL Total Protein 7.5 (6.0-8.3) g/dL Albumin 4.3 (3.3-5.0) g/dL Imaging Data CT scan - abdomen: Attestation: I have reviewed the pertinent imaging results. Radiologist's impression: TECHNIQUE: CT pelvis without contrast. COMPARISON: None. FINDINGS: Moderate left inguinal hernia contains fat, urinary bladder and small volume ascites. There is heterogeneous stranding of fat within the hernia. Bladder as imaged is otherwise unremarkable. Mild prostatomegaly. Sigmoid diverticulosis without evidence of acute diverticulitis. No pathologic pelvic lymphadenopathy. Atherosclerotic disease. No aneurysm of the distal abdominal aorta. Mild degenerative changes of the visualized spine and pelvis. No acute or suspicious osseous abnormality. IMPRESSION: Moderate left inguinal hernia containing urinary bladder, small volume ascites and internal fat stranding. Surgical consultation regarding further management recommended. Discharge Plan Discharge Clinical Impression: Incarcerated hernia Patient Disposition: Home, Self-Care Condition: Improved Additional Instructions: You will need to follow-up outpatient with General surgery to discuss surgery to fix the hernia. If the bulge and pain return, you should return to the ER. Avoid any heavy lifting, anything greater than 10 lb, until you see the surgeon. Prescriptions: No Action folic acid 1 mg tablet 1 mg PO DAILY Qty: 90 3RF CPAP inhalation lisinopril-hydrochlorothiazide 10-12.5 mg tablet 1 tab PO QDAY Qty: 90 1RF gabapentin 300 mg capsule 300 mg PO TID PRN (Reason: pain) Qty: 90 0RF levothyroxine 88 mcg tablet 88 mcg PO DAILY Qty: 90 1RF tirzepatide (weight loss) 5 mg/0.5 mL pen injector 5 mg subcut QWEEK Qty: 2 0RF Rx Instructions: for 4 weeks methotrexate sodium 2.5 mg tablet 15 mg PO QWEEK Qty: 84 0RF Follow Up/Referrals: Jatinder Coffman MD [Primary Care Provider, Family Practice] Stand Alone [facility]: [facility] Info Inst[facility]
[2024-11-19 11:30] LABS: Lactate* 1.1 mmol/L (0.5-1.9)
[2024-11-19 11:35] LABS: Hematocrit 43.7 % (37.0-53.0); Hemoglobin* 14.6 gm/dL (13.5-17.5); Immature Granulocytes Abs Auto 0.00 K/uL (0.00-0.30); Immature Granulocytes Pct Auto 0.2 %; Lymphocytes Absolute Auto 2.10 K/uL (0.90-2.90); Mean Corpuscular HGB Conc 33 gm/dL (32-36); Mean Corpuscular Hemoglobin 30 pg (26-34); Mean Corpuscular Volume 89 fL (80-100); RDW Coefficient of Variation % 13.7 % (11.5-15.5); Red Blood Count 4.94 m/uL (4.30-5.90); Slide Review Reflex No; White Blood Count* 14.38 K/uL (4.50-11.00)
[2024-11-19 12:21] LABS: Albumin* 4.3 g/dL (3.3-5.0); Chloride* 101 mmol/L (96-114)
[2024-11-19 12:22] LABS: Potassium* 4.0 mmol/L (3.6-5.1); Sodium* 136 mmol/L (135-149)
[2024-11-19 12:24] LABS: Alanine Aminotransferase* 17 U/L (4-50); Anion Gap 7 mEq/L (7-15); Aspartate Amino Transferase* 23 U/L (12-35); Blood Urea Nitrogen* 14 mg/dL (7-30); Carbon Dioxide* 28 mmol/L (20-32); Creatinine* 1.0 mg/dL (0.5-1.5); Est. Creatinine Clearance* 76.95; Estimated Glomerular Filt Rate 87 ml/min; Total Protein* 7.5 g/dL (6.0-8.3)
[2024-11-19 12:25] LABS: Alkaline Phosphatase* 62 U/L (40-150); Bilirubin Direct* 0.2 mg/dL (0.0-0.5); Bilirubin Total* 0.5 mg/dL (0.1-1.5); Calcium* 9.6 mg/dL (8.4-10.6); Glucose* 95 mg/dL (60-115)
[2024-11-19] MEDS: MIDAZOLAM HCL 1 MG/ML inj 2 MG IVP (13:01)
== END 2024-11-19 14:09 | disposition home or self-care (01) ==
PROVIDERS: Emergency Provider Family Medicine; PCP Family Medicine
DX: K40.30 Unilateral inguinal hernia, with obstruction, without gangrene, not specified as recurrent (principal)
CPT/HCPCS: 36415; 72192; 80048; 80076; 81001; 83605; 85025; 86140; 96374; 96375; 99284; J2250; J3010

== ENCOUNTER 2024-11-28 06:47 | Day surgery (SDC) | payer OTHER, SELFPAY ==
[2024-11-28] VITALS (13 sets, daily range): BP systolic 108–126; BP diastolic 61–79; PULSE 61–73; RESP 14–16; TEMP 36.1–36.6; O2SAT 93–98; BMI 33.3
[2024-11-28] MEDS: LACTATED RINGERS 1000 ML 1,000 ML 100 ML IV ×2 (06:50→10:50)
[2024-11-28] MEDS: SODIUM CHLORIDE 0.9 % (FLUSH) 10 ML SYRINGE IVF (07:11)
[2024-11-28] MEDS: CLINDAMYCIN 900 MG/50 ML-D5W IVPB (08:10)
[2024-11-28] MEDS: BUPIVACAINE 0.25% 30 ML INJECTION (08:22)
[2024-11-28] MEDS: PROCHLORPERAZINE 5 MG/ML VIAL IVP (10:20)
--- NOTE | 2024-11-28 10:23 | P.ANES_ITS ---
Anesthesia Charges Start Date/Time Anesthesia Start Date: 11/28/24 Anesthesia Start Time: 08:00 Stop Date/Time Anesthesia Stop Date: 11/28/24 Anesthesia Stop Time: 10:21 Coding CPT Codes CPT Codes: ANESTH REPAIR OF HERNIA - 80451 ([id number]) P2 - PATIENT W/MILD SYST DISEASE, QK - HVAC INSTALLER 2-4 CNCRNT ANES PROC
--- NOTE | 2024-11-28 10:23 | W.ANESCHARGE ---
Anesthesia Charges Start Date/Time Anesthesia Start Date: 11/28/24 Anesthesia Start Time: 08:00 Stop Date/Time Anesthesia Stop Date: 11/28/24 Anesthesia Stop Time: 10:21 Coding CPT Codes CPT Codes: ANESTH REPAIR OF HERNIA - 43681 ([id number]) P2 - PATIENT W/MILD SYST DISEASE, QK - GOLD CUTTER 2-4 CNCRNT ANES PROC
[2024-11-28] MEDS: ONDANSETRON 2 MG/ML inj 4 MG IVP (10:30)
--- NOTE | 2024-11-28 11:06 | P.ANES_ITS ---
Anesthesia Charges Start Date/Time Anesthesia Start Date: 11/28/24 Anesthesia Start Time: 08:00 Stop Date/Time Anesthesia Stop Date: 11/28/24 Anesthesia Stop Time: 10:21 Coding CPT Codes CPT Codes: ANESTH REPAIR OF HERNIA - 84058 ([id number]) QK - MANAGER WASTEWATER 2-4 CNCRNT ANES PROC, QX - REGIONAL PSYCHIATRIC DIRECTOR SVC W/ MD MED DIRECTION, P2 - PATIENT W/MILD SYST DISEASE
--- NOTE | 2024-11-28 11:06 | W.ANESCHARGE ---
Anesthesia Charges Start Date/Time Anesthesia Start Date: 11/28/24 Anesthesia Start Time: 08:00 Stop Date/Time Anesthesia Stop Date: 11/28/24 Anesthesia Stop Time: 10:21 Coding CPT Codes CPT Codes: ANESTH REPAIR OF HERNIA - 88019 ([id number]) QK - RN TELEPHONE TRIAGE 2-4 CNCRNT ANES PROC, QX - RADIO REPAIRER SVC W/ MD MED DIRECTION, P2 - PATIENT W/MILD SYST DISEASE
--- NOTE | 2024-11-28 12:17 | SUR.PHASEII ---
patient encouraged to be up and moving, patient refusing to respond to nursing staff. is agreeable with plan to get up and dressed and to the bathroom. after about 20 minutes patient finally was able to sit up, get dressed but kept scowling at nursing staff and refusing to speak. patient is not complaining of pain. patient has been given all medications for nausea as well. states this is normally how he is post op as he has had previous hernia surgeries. discharge instructions reviewed with patient and patients , all questions answered to the best of writers ability.
--- NOTE | 2024-11-28 12:25 | P.GSOP_ITS ---
Operative Note Date of procedure: 11/28/24 Pre-op diagnosis: Left inguinal hernia, incarceration of fat and portion of bladder Post-op diagnosis: Same Type of Procedure: Open left inguinal hernia repair with placement of mesh Indications: Patient is a 59-year-old male with large left inguinal hernia. He was recently seen in the emergency department for incarceration of intra-abdominal fat and a portion of his bladder. This was able to be manually reduced and he was seen in clinic last week. Different treatment options were reviewed with the patient, please see consultation note. Risks and benefits of operative intervention were discussed at length with the patient. Risks included but was not limited to: Bleeding, infection, risk of damage to surrounding structures, possible need for additional procedures, risk of recurrence and postoperative complications such as pneumonia, pulmonary emboli or IN. All questions and concerns were addressed with the patient agreeing to proceed. Procedure Description: After discussing the risks and benefits of the procedure, the patient signed informed consent.? The operative site was marked and the patient was brought to the operating room and placed on the operating table in supine position.? Care was taken to pad the patient's pressure points.?? The patient was then intubated by anesthesia.?? The operative site was then prepped and draped in the usual sterile fashion.? A time-out was then performed. Local anesthetic was injected into the skin and subcutaneous tissue overlying the inguinal canal. An oblique incision would was made over the external ring. Dissection was carried down into the subcutaneous tissue. Vidal's fascia was incised. A large vein within the subcutaneous tissue was identified and ligated with 3-0 Vicryl ties. The hernia was then identified protruding through the external oblique fascia, which was attenuated. The external oblique was then further incised cephalad and caudad to the hernia sac. The external ring was obliterated. The cord structures were identified and looped with a Nitin d rain. The hernia sac was identified coming from the floor of the inguinal canal, consistent with a direct hernia. The surrounding tissue was circumferentially dissected free and the sac reduced. The inguinal floor was then brought together with interrupted 0 Nurolon suture. The cord structures were identified. A large cord lipoma was removed. No indirect inguinal hernia was identified. A piece of soft Bard mesh was obtained and cut to size. This was secured to the pubic tubercle using interrupted 0 Nurolon. Several 0 Nurolon were then placed along the inguinal ligament and superiorly along the transversalis fascia securing the tails behind the cord and recreating the internal ring. The wound was examined for hemostasis. The external oblique fascia was then reapproximated with absorbable suture. The wound was then closed in layers including Vidal's fascia and the dermis with 3-0 Vicryl suture. The skin was then closed with a running subcuticular suture. Sterile dressings were applied. Both testicles were palpated at the end of the procedure. Instrument sponge and needle counts were correct at the end of the case. The patient was woken and taken to the PACU in stable condition. Findings: Large direct hernia on the left. Repaired open with placement of mesh Anesthesia: CYNTHIA Surgeon: Kylah Roberts MD Estimated blood loss (mL): 15 Condition: stable Disposition: PACU
--- NOTE | 2024-11-28 12:25 | W.PM.H&PU ---
History & Physical Update History & Physical Update H&P Reviewed and patient assessed: No changes noted
== END 2024-11-28 12:28 | disposition home or self-care (01) ==
PROVIDERS: PCP Family Medicine; Visit Provider Surgery
PROC: (CPT 49507; principal; 2024-11-28 08:00)
DX: K40.30 Unilateral inguinal hernia, with obstruction, without gangrene, not specified as recurrent (principal)
CPT/HCPCS: 49507; 00830; C1781; J0330; J0665; J0736; J0780; J1100; J1171; J1630; J1885; J2250; J2371; J2405; J2704; J3010; J3490; J7120